=== PATIENT | male | born 1990 | race Two or more races ===

== ENCOUNTER 2017-04-22 07:11 | Day surgery (SDC) | payer OTHER ==
[2017-04-22] MEDS ORDERED: Lactated Ringer's 500 ML IV ONE (07:52)
[2017-04-22 09:04] VITALS: RESP 12; TEMP 97; O2SAT 99
[2017-04-22 09:25] VITALS: BP 105/54; PULSE 50
== END 2017-04-22 12:00 | disposition home or self-care (01) ==
LOC: H.ENDO 07:11
PROVIDERS: ATTEND Internal Medicine Gastroenterology
DX: K20.9 Esophagitis, unspecified (principal); K31.9 Disease of stomach and duodenum, unspecified; K44.9 Diaphragmatic hernia without obstruction or gangrene; K29.50 Unspecified chronic gastritis without bleeding
CPT/HCPCS: 43239; 88305; 88312; 88342; J2001; J2704; J7120